=== PATIENT | male | born 1960 | race Caucasian/White ===

== ENCOUNTER 2018-03-17 11:51 | Observation (INO) | payer MEDICARE, BC ==
[~2018-03-17] VITALS: Ht 175.3 cm; Wt 113.2 kg
[2018-03-17] VITALS (10 sets, daily range): BP systolic 102–131; BP diastolic 61–88
[2018-03-17] MEDS ORDERED: LEVAQUIN 100 ML IV ONE (13:00)
[2018-03-17] MEDS ORDERED: NS 1000ML 1,000 ML IV ONE ×2 (13:00→17:30)
[2018-03-17 13:31] LABS: BASOPHIL % 0.1 % (0.0-0.2); EOSINOPHIL # 0.1 10^3/uL (0.0-0.2); EOSINOPHIL % 1.7 % (0.0-5.0); HEMOGLOBIN 14.7 g/dL (13.9-16.3); LYMPHOCYTES # 2.1 10^3/uL (1.0-4.8); LYMPHOCYTES % 28.4 % (24.0-44.0); MEAN CELL HGB 31.4 pg (26-34); MEAN CELL HGB CONCENTRATION 35.1 g/dL (33-37); MEAN CORP VOLUME 89.5 fL (78-100); MEAN PLATELET VOLUME 10.3 fL (7.8-11.0); MONOCYTES # 0.5 10^3/uL (0.3-0.8); MONOCYTES % 7.1 % (5.0-12.0); NEUTROPHIL # 4.7 10^3/uL (1.8-7.7); NEUTROPHILS % 62.4 % (41.0-85.0); RED CELL DISTRIBUTION WIDTH 11.9 % (11.5-14.5); WHITE BLOOD CELL 7.5 10^3/uL (4.5-11.0)
[2018-03-17] MEDS ORDERED: TRAM50TA PO (13:47)
[2018-03-17] MEDS ORDERED: ALBU8.5H7 IH (13:50)
[2018-03-17] MEDS ORDERED: PANT40TA3 PO (13:53)
[2018-03-17] MEDS ORDERED: ALPR0.5T PO (13:54)
[2018-03-17] MEDS ORDERED: VITA1TAB19 PO (13:59)
[2018-03-17] MEDS ORDERED: ASCO500C PO (13:59)
[2018-03-17] MEDS ORDERED: VITA400C36 PO (13:59)
[2018-03-17] MEDS ORDERED: ZINC30CA PO (13:59)
--- NOTE | 2018-03-17 14:02 | PCM.EKG ---
[facility] Test Date: 2018-03-17 Test Time: 14:02:53 Pat Name: ALEX ROTHMAN Department: Room: 303 A Gender: M Customer Services Coordinator: SARAH : 1960 Requested By: EDUIN SZYMANSKI Order Number: [id number] Reading MD: Measurements Intervals [place] Rate: 53 P: 69 ME: 144 QRS: 54 QRSD: 90 T: 55 QT: 446 QTc: 418 Interpretive Statements Sinus bradycardia ST abnormality, possible digitalis effect Abnormal ECG No previous ECG available for comparison Please click the below link to view image of tracing.
[2018-03-17 14:20] LABS: CALCIUM 8.7 mg/dL (8.4-10.5)
[2018-03-17] MEDS ORDERED: TORADOL IV ONE (14:45)
[2018-03-17] MEDS ORDERED: PHENERGAN 25 MG in HNS 50ML 50 ML IV ONE (15:15)
[2018-03-17] MEDS ORDERED: DEMEROL IV ONE (15:15)
--- NOTE | 2018-03-17 15:45 | NUR ---
ANESTHESIA AT BEDSIDE. PATIENT ALERT AND ORIENTED. DENIES PAIN SEVERE AT PRESENT. REPORTS RELIEVED WITH TORADOL.
[2018-03-17] MEDS ORDERED: DECADRON ONE (16:01)
[2018-03-17] MEDS ORDERED: TORADOL ONE (16:01)
[2018-03-17] MEDS ORDERED: ZOFRAN ONE (16:01)
[2018-03-17] MEDS ORDERED: VERSED ONE (16:01)
[2018-03-17] MEDS ORDERED: QUELICIN ONE (16:01)
[2018-03-17] MEDS ORDERED: ZEMURON IV ONE (16:01)
[2018-03-17] MEDS ORDERED: SUBLIMAZE ONE (16:02)
[2018-03-17] MEDS ORDERED: DIPRIVAN IV ONE (16:02)
--- NOTE | 2018-03-17 16:06 | NUR ---
PATIENT OFF UNIT FOR PROCEDURE.
[2018-03-17] MEDS ORDERED: LACTATED RINGERS 1,000 ML IV SCH (17:00)
[2018-03-17] MEDS ORDERED: XANAX PO PRN (17:00)
[2018-03-17] MEDS ORDERED: NS 1000ML 1,000 ML ONE (17:19)
[2018-03-17] MEDS ORDERED: DUONEB 0.5 MG-3 MG/3 ML SOLN IH ONE (17:22)
[2018-03-17] MEDS ORDERED: DUONEB 0.5 MG-3 MG/3 ML SOLN IH STA (17:24)
[2018-03-17] MEDS ORDERED: SUBLIMAZE IV PRN (17:30)
[2018-03-17] MEDS ORDERED: ZOFRAN IV PRN (17:30)
[2018-03-17] MEDS: LACTATED RINGERS 1,000 ML IV SCH (17:30)
--- NOTE | 2018-03-17 17:35 | NUR ---
PATIENT RETURNED TO ROOM FROM CYSTO. PATIENT HAD CYSTO WITH STINT PLACEMENT. PATIENT DROWSY BUT RESPONDS APPROPRIATELY. DENIES PAIN. REPORT RECEIVED FROM BLADE YOUNGER. SPECIAL VITAL SIGNS STARTED. PATIENT DID NOT RECEIVE ANY PAIN MEDICATION IN PACU. RECEIVED A BREATHING TREATMENT WHILE IN PACU. PATIENT REQUESTING TO GET UP TO THE BATHROOM. INSTRUCTED IT IS NOT RECOMMENDED TO GET UP THIS SOON AFTER ANESTHESIA. OFFERED URINAL BUT DENIED. INSTRUCTED HE IS STILL DROWSY AND PRONE TO FALL. SR UP X2. INSTRUCTED NOT TO GET OUT OF BED WITHOUT CALLING NURSE.
--- NOTE | 2018-03-17 18:05 | NUR ---
PATIENT UP TO BATHROOM TO VOID. PATIENT WITH HESITANCY AND PAIN WITH URINATION. VOIDED APPROXIMATELY 40CC LIGHT RED COLORED URINE. PATIENT REPEATEDLY STATED HE FELT LIKE HE STILL NEEDED TO URINATE BUT AFTER 10 MINS NURSE INSISTED PATIENT RETURN TO BED. PATIENT REPORTS FEELING LIGHT HEADED. PATIENT SAT UP ON SIDE OF BED.
--- NOTE | 2018-03-17 18:17 | NUR ---
PATIENT STANDING ON SIDE OF BED ATTEMPTING TO URINATE AGAIN. INSTRUCTED PATIENT THAT FEELING OF NEEDING TO URINATE IS EXPECTED AFTER PROCEDURE. PATIENT MAY NOT HAVE URINE OUT BUT MAY FEEL LIKE HE NEEDS TO URINATE. PATIENT INSIST ON TRYING. INSTRUCTED PATIENT GOING TO THE BATHROOM IS TOO MUCH RISK AT PRESENT. PATIENT AGREED TO USE URINAL AT BEDSIDE. PATIENT UNABLE TO VOID. ASSISTED BACK TO BED. SPECIAL VITAL SIGNS RESUMED.
--- NOTE | 2018-03-17 18:22 | DIREP ---
PROCEDURE:XRAY UROGRAPHY RETROGRADE COMPARISON:None. INDICATIONS:KIDNEY STONE, 7 images, 10ml omnipaque 240, 28.81 mGy, 60.3 fluoro time TECHNIQUE:7 fluoroscopic images during right ureteral stone extraction and stent placement. FINDINGS:Images depict a stone in the right paraspinal soft tissues. After contrast in the ureter and renal pelvis there are filling defects in the right renal pelvis and proximal right ureter. Placement of the right ureteral stent with the coils projecting over the renal pelvis and urinary bladder. CONCLUSION:Fluoroscopic assistance during right ureteral stone extraction and stent placement. Dictated by: Timi Davenport M.D. on 03/17/2018 at 06:20 PM
[2018-03-17] MEDS ORDERED: VENTOLIN IH PRN (20:00)
--- NOTE | 2018-03-17 21:40 | OPH ---
DATE OF SURGERY: 03/17/2018 PREOPERATIVE DIAGNOSIS: Calculus in the right proximal ureter. FINAL DIAGNOSIS: Calculus in the right proximal ureter. PROCEDURES: Cystoscopy, right retrograde, stone manipulation, insertion of double-J ureteral stent. DESCRIPTION OF PROCEDURE: The patient was brought to the cystoscopy room and put in supine position on the cystoscopy table. After the patient was given a satisfactory and adequate general anesthesia, the patient was placed in the lithotomy position. The genitalia was then prepped and draped aseptically in the usual manner. First, a 23-Greenlandic cystoscope was inserted per urethra up to the bladder. With the use of a right angle lens, the bladder was visualized. Both the orifices were identified. Initially, a right retrograde was done by inserting a 7-Greenlandic ureteral catheter in the right orifice and injected with Isovue dye and it shows the calculus in the right proximal ureter with hydronephrosis. A double-J ureteral stent was then inserted from the right orifice all the way to the kidney and the stone moved up to the right kidney during the stone manipulation. A double ureteral stent was put in place. After this, the guidewire was removed and the fluid in the bladder was emptied and instrument was removed. The patient was then awakened, was transferred to the recovery room in stable condition. Yovani Guerra MD DR: CORAL/eri JOB# [id number]
[2018-03-18 00:10] VITALS: BP 122/67
[2018-03-18] MEDS: NORCO 7.5MG PO PRN ×2 (01:23→13:36)
[2018-03-18] MEDS: LACTATED RINGERS 1,000 ML IV SCH (01:23)
[2018-03-18 03:52] VITALS: BP 124/71
--- NOTE | 2018-03-18 06:35 | NUR ---
BEDSIDE REPORT RECEIVED FROM [facility]. PATIENT LYING IN BED WITH HOB ELEVATED. O2 ON PER NASAL CANNULA AT 1 L. RESPIRATIONS UNLABORED PATIENT AWAKE BUT DROWSY. DENIES PAIN OR DISCOMFORT AT PRESENT. REPORTS VOIDING PINK URINE DURING THE NIGHT. REPORTS PAIN CONTROLLED WITH ONE NORCO. PATIENT STATES "I FINALLY SLEPT ABOUT 4 HOURS." IV PRESENT IN LEFT FOREARM WITH 20 GA AND LR INFUSING AT 100CC/HR. NO DISTRESS NOTED AT PRESENT. SR UPX2. CALL LIGHT WITHIN REACH.
--- NOTE | 2018-03-18 07:04 | NUR ---
Report Report given to Chaka Larios RN
--- NOTE | 2018-03-18 08:30 | NUR ---
PATIENT SITTING UP IN BED. RESPIRATIONS UNLABORED ON ROOM AIR. REPORTS PAIN PRESENT BUT NOT SEVERE. STATES "THE PAIN IS IN MY RIGHT SIDE. ITS A LITTLE BIT IN MY KIDNEY. MY STOMACH HURTS BECAUSE I THINK I AM CONSTIPATED SOME." PATIENT ENCOURAGED TO GET UP AND WALK. PATIENT DRANK 75% OF CLEAR LIQUID DIET. TOLERATED WITHOUT PROBLEMS. SR UP X2. CALL LIGHT WITHIN REACH.
--- NOTE | 2018-03-18 08:45 | NUR ---
DR SZYMANSKI AT BEDSIDE. INSTRUCTED PATIENT HE IS DISCHARGED UNTIL SATURDAY. HE IS TO COME BACK SATURDAY TO HAVE STONE CRUSHED BY LITHOTRIPSY. HE STATED HE WILL PRESCRIBE ANTIBIOTIC AND PAIN MED. INFORMED DR SZYMANSKI PATIENT HAS TRAMADOL HE JUST FILLED FOR PAIN AND HAS NOT TAKEN ANY. HE STATED HE WILL JUST PRESCRIBE CIPRO AND HE NEEDS TO TAKE IT ALL. DR SZYMANSKI INFORMED PATIENT THAT HE WILL EXPERIENCE ABDOMINAL DISCOMFORT UNTIL SATURDAY BECAUSE HE PLACED A STINT FROM THE BLADDER TO THE KIDNEY SO THAT HE CAN URINATE. HE STATED THAT THE STONE WAS BLOCKING THE URETER. HE STATED HE WOULD PROBABLY EXPERIENCE BURNING, PAIN AND POSSIBLY SOME BLEEDING. PATIENT REQUESTED TO STAY UNTIL AFTER LUNCH BECAUSE "IM MORE COMFORTABLE HERE WITH SOMEONE HERE TO HELP ME." DR SZYMANSKI AGREED. PATIENT C/O BEING CONSTIPATED. DR SZYMANSKI STATED HE COULD HAVE A LAXATIVE OF CHOICE AND A REGULAR DIET. DR SZYMANSKI SAID TO CALL HIS OFFICE TO FIND OUT WHEN HE IS TO BE HERE ON SATURDAY FOR THE PROCEDURE AND INFORMED THE PATIENT IT IS AN OUT PATIENT PROCEDURE. PATIENT VERBALIZED UNDERSTANDING.
[2018-03-18] MEDS: PROTONIX PO SCH ×2 (09:00→09:04)
[2018-03-18] MEDS ORDERED: LACTATED RINGERS 1,000 ML IV SCH (09:00)
[2018-03-18] MEDS ORDERED: COLACE PO ONE (09:10)
[2018-03-18 09:22] VITALS: BP 128/68
--- NOTE | 2018-03-18 09:55 | NUR ---
DISCHARGE PLAN CM VISITED WITH PATIENT REGARDING DISCHARGE PLAN AND NEEDS. PATIENT LIVES AT HOME ALONE IN [place], [place]. HE IS RETIRED AND INDEPENDENT WITH ADL'S. HE STATES HE DOES NOT USE ANY DME AT THIS TIME AND HE DOES NOT REQUIRE OXYGEN AT HOME. HE DOES HAVE A CPAP THAT HE IS SUPPOSED TO WEAR EVERY NIGHT BUT HE STATES HE RARELY USES IT. PT NOT SURE WHICH DME COMPANY HE GETS HIS CPAP SUPPLIES FROM. PATIENT IS CONCERNED WITH GOING HOME TODAY STATING HE FEELS LIKE HE NEEDS TO STAY BECAUSE HE STILL HAS A KIDNEY STONE AND HE DOESN'T KNOW HOW HE WILL COME BACK AND FORTH FOR MULTIPLE APPOINTMENTS DUE TO NOT HAVING A VEHICLE AND NOT HAVING ANY FAMILY OR FRIENDS TO HELP HIM. CM SUGGESTED CALLING [employer], PATIENT STATES HE DOESN'T LIKE [employer] [facility] BECAUSE THEY STOP TOO OFTEN TO STATOR TESTER OTHER PATIENTS AND IT GIVES HIM ANXIETY. THEN PATIENT STATES HIS BROTHER IS BRINGING HIM TO HIS NEXT SCHEDULED APPOINTMENT. DISCHARGE GOAL IS TO DISCHARGE HOME WITH CONTINUED ROUTINE SELF CARE. CM DEPT WILL CONTINUE TO MONITOR DISCHARGE NEEDS.
[2018-03-18] MEDS ORDERED: CIPR500T86 PO (11:02)
--- NOTE | 2018-03-18 11:28 | NUR ---
RESTING IN BED. DENIES PAIN AT PRESENT. REQUESTS PAIN MED BEFORE DISCHARGE DUE TO RIDE HOME. STATES "THE ROAD IS REALLY BUMPY SO I KNOW IT IS GOING TO HURT." NO DISTRESS NOTED AT PRESENT. SR UP X2. CALL LIGHT WITHIN REACH.
[2018-03-18 12:08] VITALS: BP 123/70
[2018-03-18 13:40] VITALS: BP 123/70
--- NOTE | 2018-03-18 13:40 | NUR ---
DISCHARGE INSTRUCTIONS EXPLAINED TO PATIENT. INSTRUCTED RE: S/S TO REPORT TO MD. INSTRUCTED TO REPORT INCREASED UNCONTROLLED PAIN, INCREASED BLEEDING, CHILLS, FEVER, INABILITY TO URINATE, ABDOMINAL DISTENTION. INSTRUCTED RE: CALL DR SZYMANSKI'S OFFICE ON SATURDAY TO FIND OUT WHAT TIME TO BE HERE TO ARRIVE FOR THE LITHOTRIPSY ON SATURDAY. INSTRUCTED RE: CIPRO TWICE DAILY X10 DAYS. INSTRUCTED RE: TRAMADOL 1-2 TABLETS FOR PAIN Q 6 HOURS NEEDED. INSTRUCTED TO INCREASE FLUID INTAKE TO ASSIST WITH FLUSHING OUT KIDNEYS. PATIENT VERBALIZES UNDERSTANDING. PATIENT DISCHARGED VIA W/C WITH NEPHEW TO PRIVATE CAR.
[2018-03-21] MEDS ORDERED: TAMS0.4C2 PO (09:28)
== END 2018-03-18 13:40 | disposition home or self-care (01) ==
LOC: MS 11:51 → EDSTATUS 16:00
PROVIDERS: ADMIT Urology; ATTEND Urology
DX: N13.2 Hydronephrosis with renal and ureteral calculous obstruction (principal); F41.9 Anxiety disorder, unspecified; E66.9 Obesity, unspecified; K21.9 Gastro-esophageal reflux disease without esophagitis; J45.909 Unspecified asthma, uncomplicated; E11.9 Type 2 diabetes mellitus without complications
CPT/HCPCS: 36415; 52332; 74420; 76000; 80048; 82948 ×5; 85025; 85610; 85730; 93005; 94640; 94660; 96365; 96375; G0378 ×26; J0330; J1100; J1885 ×2; J1956; J2250; J2405; J3010; J3490 ×2; J7030 ×2; J7120 ×2; J7620; Q9966; C1758; C1769; C2617

== ENCOUNTER → 2018-03-21 | Day surgery (SDC) | payer MEDICARE, BC ==
[~2018-03-21] VITALS: Ht 175.3 cm; Wt 109.1 kg
[2018-03-21] VITALS (9 sets, daily range): BP systolic 116–154; BP diastolic 81–93
[~2018-03-21] MED LIST: ALBU8.5H7 IH; ALPR0.5T PO; ASCO500C PO; ATOR10TA PO; CIPR500T86 PO; DECADRON ONE; DILAUDID IV PRN; DIPRIVAN IV ONE; LACTATED RINGERS 1,000 ML IV SCH; LASIX IV ONE; LASIX IV SCH; LEVAQUIN 100 ML IV ONE; LIDOCAINE 2% VIAL ONE; NORCO 7.5MG PO PRN; PANT40TA3 PO; SUBLIMAZE IV PRN; SUBLIMAZE ONE; TAMS0.4C2 PO; TORADOL ONE; TRAM50TA PO; VERSED ONE; VITA1TAB19 PO; VITA400C36 PO; ZINC30CA PO; ZOFRAN IV PRN; ZOFRAN ONE
--- NOTE | 2018-03-21 09:53 | DIREP ---
PROCEDURE:XRAY ABDOMEN SINGLE VW COMPARISON:[facility], CT, CT RENAL STONE PROTOCOL, 03/16/2018, 03:20 PM. [facility], CR, XRAY UROGRAPHY RETROGRADE, 03/17/2018, 02:43 PM. INDICATIONS:URETERAL STENT; ESWL (extracorporeal shock wave lithotripsy) of renal stone. FINDINGS: BOWEL GAS PATTERN:Normal. CALCIFICATIONS:There is a 9 mm calculus overlying the lower portion of the right kidney, probably right in the right renal pelvis. There is also a 4 mm calculus overlying the expected region of the left kidney. LUNG BASES:Not included on the image. BONES:Normal. OTHER:A right double-J ureteral stent is seen in place . CONCLUSION: 1. A right ureteral stent is seen in place. 2. Bilateral renal calculi are noted. Dictated by: Benton Lo M.D. on 03/21/2018 at 09:47 AM
--- NOTE | 2018-03-21 12:58 | OPH ---
DATE OF SURGERY: 03/21/2018 PREOPERATIVE DIAGNOSIS: Right renal calculus with an indwelling stent. FINAL DIAGNOSIS: Right renal calculus with an indwelling stent. PROCEDURE: Right ESWL. DESCRIPTION OF PROCEDURE: The patient was brought to the lithotripsy room, was put in supine position on the lithotripsy table. The right Preop KUB and renal ultrasound was initially performed which revealed a large stone in the lower pole of the right kidney measuring 8.5 mm in diameter. There is no evidence of hydronephrosis, no cysts or masses noted. After the patient was given an LMA general anesthesia and after localization of the stone with the use of an ultrasound and fluoroscopy, a right ESWL was then performed using a Dornier Compact Delta II Lithotripter. A total of 2000 shockwaves were delivered to the stone in the right kidney under ultrasound guidance. After fragmentation of the stone as noted in the ultrasound, procedure was terminated. The patient was awakened, was transferred to the recovery room in stable condition. Yovani Guerra MD DR: CORAL/eri JOB# [id number]
== END | disposition home or self-care (01) | DRG 694 ==
LOC: SDC 04:26
PROVIDERS: ATTEND Urology
DX: N20.0 Calculus of kidney (principal); F41.9 Anxiety disorder, unspecified; K21.9 Gastro-esophageal reflux disease without esophagitis; E66.9 Obesity, unspecified; E11.9 Type 2 diabetes mellitus without complications; J45.909 Unspecified asthma, uncomplicated; Z68.35 Body mass index [BMI] 35.0-35.9, adult; G47.30 Sleep apnea, unspecified; E78.00 Pure hypercholesterolemia, unspecified; Z98.890 Other specified postprocedural states; Z79.899 Other long term (current) drug therapy
CPT/HCPCS: 50590; 74018; 82948 ×2; J1100; J1885; J1956; J2001; J2250; J2405; J3010; J3490

== ENCOUNTER 2018-03-24 00:17 | Day surgery (SDC) | payer MEDICARE, BC ==
[2018-03-24] VITALS (8 sets, daily range): BP systolic 123–136; BP diastolic 65–78
[~2018-03-24] VITALS: Ht 175.3 cm; Wt 109.1 kg
[~2018-03-24 00:17] MED LIST changes: -ATOR10TA PO; -DECADRON ONE; -DILAUDID IV PRN; -DIPRIVAN IV ONE; -LACTATED RINGERS 1,000 ML IV SCH; -LASIX IV ONE; -LASIX IV SCH; -LEVAQUIN 100 ML IV ONE; -LIDOCAINE 2% VIAL ONE; -NORCO 7.5MG PO PRN; +QUELICIN ONE; -SUBLIMAZE IV PRN; -SUBLIMAZE ONE; -TORADOL ONE; -VERSED ONE; -ZOFRAN IV PRN; -ZOFRAN ONE
[2018-03-24] MEDS ORDERED: LACTATED RINGERS 1,000 ML ONE (05:15)
[2018-03-24] MEDS ORDERED: LEVAQUIN 100 ML IV ONE (05:16)
[2018-03-24] MEDS ORDERED: SUBLIMAZE ONE (07:09)
[2018-03-24] MEDS ORDERED: VERSED ONE (07:09)
[2018-03-24] MEDS ORDERED: TORADOL ONE (07:09)
[2018-03-24] MEDS ORDERED: ZOFRAN ONE (07:09)
[2018-03-24] MEDS ORDERED: LIDOCAINE 2% VIAL ONE (07:10)
[2018-03-24] MEDS ORDERED: DIPRIVAN IV ONE (07:10)
[2018-03-24] MEDS ORDERED: LACTATED RINGERS 1,000 ML IV SCH ×2 (07:30→09:30)
[2018-03-24] MEDS ORDERED: SODIUM CHLORIDE IR ONE (08:44)
[2018-03-24] MEDS ORDERED: NS 3000ML IRR IR ONE (08:44)
[2018-03-24] MEDS ORDERED: NORCO 7.5MG PO PRN (09:30)
[2018-03-24] MEDS ORDERED: SUBLIMAZE IV PRN (10:00)
[2018-03-24] MEDS ORDERED: NS 1000ML 1,000 ML SCH (10:00)
--- NOTE | 2018-03-24 11:51 | DIREP ---
PROCEDURE:XRAY FLUOROSCOPY COMPARISON:[facility], CR, XRAY ABDOMEN SINGLE VW, 03/21/2018, 06:57 AM. [facility], CR, XRAY UROGRAPHY RETROGRADE, 03/17/2018, 02:43 PM. [facility], CT, CT RENAL STONE PROTOCOL, 03/16/2018, 03:20 PM. INDICATIONS:cysto with stent removal, 64.72 mGy, 10 films, 147.6 seconds fluoro TECHNIQUE:1847.6 seconds of fluoroscopic time was used. Ten images were saved. FINDINGS:Initial images demonstrate a right ureteral stent. There is a calculus noted in the upper right ureter lumen adjacent to this stent. A calculus is also identified over the region of the left kidney. Subsequently, the stent was removed and the right ureter catheterized manipulated. Final image demonstrates no definite evidence of right renal calculus. CONCLUSION: 1. A right ureteral stent was removed. 2. The right ureter was manipulated. A calculus initially identified in the upper right ureter is not seen on the final film. A left renal calculus is re-demonstrated. 3. Please also see the surgeon's operative note. Dictated by: Benton Lo M.D. on 03/24/2018 at 11:56 AM
--- NOTE | 2018-03-24 13:28 | OPH ---
DATE OF SURGERY: 03/24/2018 PREOPERATIVE DIAGNOSIS: Calculus of the right kidney, post-ESWL with stent. FINAL DIAGNOSIS: Residual calculi in the right upper ureter with stent. PROCEDURES: Cystoscopy, removal of right ureteral stent, right ureteroscopy with ureteral basket stone extraction. DESCRIPTION OF PROCEDURE: The patient was brought to the cystoscopy room and was put in supine position on the cystoscopy table. After the patient was given a satisfactory and adequate LMA general anesthesia, the patient was placed in the lithotomy position. The genitalia was then prepped and draped aseptically in the usual manner. First, a 23-Kyrgyz cystoscope was inserted per urethra up to the bladder with the use of the right angle and the bladder was visualized. There was some congestion noted. This is a presence of stent in the right ureteral orifice. The left ureteral orifice was normal. The right ureteral stent was then removed and replaced with a Glidewire. After removal of the stent, the cystoscope was removed and ____ semirigid ureteroscope was inserted to the bladder from the right orifice all the way to the upper ureter and it revealed some stones in the right upper ureter and basket stone extraction was performed. After this was done, the instrument was removed. The Glidewire was removed and a cystoscope was reinserted to the bladder and the bladder was emptied with fluid. Procedure was terminated. The patient was awakened, was transferred to the recovery room in stable condition. Yovani Guerra MD DR: CORAL/eri JOB# [id number]
== END 2018-03-24 11:20 | disposition home or self-care (01) ==
LOC: SURG 00:17
PROVIDERS: ATTEND Urology
DX: Z45.89 Encounter for adjustment and management of other implanted devices (principal); F41.9 Anxiety disorder, unspecified; E11.9 Type 2 diabetes mellitus without complications; E66.9 Obesity, unspecified; K21.9 Gastro-esophageal reflux disease without esophagitis; G47.30 Sleep apnea, unspecified; J45.909 Unspecified asthma, uncomplicated; E78.00 Pure hypercholesterolemia, unspecified; Z68.35 Body mass index [BMI] 35.0-35.9, adult; Z79.899 Other long term (current) drug therapy; Z98.890 Other specified postprocedural states; Z88.6 Allergy status to analgesic agent; Z79.2 Long term (current) use of antibiotics; Z82.5 Family history of asthma and other chronic lower respiratory diseases; Z84.89 Family history of other specified conditions
CPT/HCPCS: 52352; 76000; 82948 ×2; J0330; J1885; J1956; J2001; J2250; J2405; J3010; J3490; J7030 ×2; J7120; C1758; C1894

== ENCOUNTER 2018-03-26 09:43 | Observation (INO) | payer MEDICARE, BC ==
[~2018-03-26] VITALS: Ht 175.3 cm; Wt 111.1 kg
[~2018-03-26 09:43] MED LIST changes: -QUELICIN ONE
--- NOTE | 2018-03-26 09:50 | NUR ---
ARRIVAL PATIENT ER 6, AMBULATORY. PATIENT POST OP, SWAL FOR DR. SZYMANSKI. PATIENT REFERED TO ED FOR LABS UNTIL NESSA FINISHES CASE. PATIENT STATES HIS PAIN IS AT A 4/10, AND THAT HE CAN'T TAKE THE TRAMADOL, IT MAKES HIM THROW UP, HE IS REQUESTING ANOTHER PAIN MEDICATION FROM NESSA. PATIENT ASSESSMENT COMPLETED, CONNECTED TO ALL MONITORS, MD AT BEDSIDE FOR EVAL.
[2018-03-26 10:02] VITALS: BP 147/82
--- NOTE | 2018-03-26 10:15 | NUR ---
CT PATIENT TO CT
--- NOTE | 2018-03-26 10:19 | ER.PDOC ---
General Chief Complaint: General Complaint Stated Complaint: MALE , R FLANK PAIN Time seen by MD: 10:00 Source: patient Exam Limitations: no limitations History of Present Illness Problems: (1) Calculus of kidney Status: Chronic ICD Code: N20.0 - Calculus of kidney SNOMED: [id number] Timing/Duration: constant Severity/Quality: dullness Radiation: flank, groin Associated Symptoms: back pain, nausea/vomiting Relieved By: nothing Allergies: Coded Allergies: tramadol (Verified Allergy, Intermediate, 03/26/18) Home Meds Active Scripts Tamsulosin Hcl (TAMSULOSIN HCL) 0.4 Mg Cap.er.24h, 0.4 MG PO DAILY24, #21 Prov:EDUIN SZYMANSKI MD 03/21/18 Ciprofloxacin Hcl (CIPRO) 500 Mg Tablet, 500 MG PO BID, #20 Prov:EDUIN SZYMANSKI MD 03/18/18 Reported Medications Acetaminophen With Codeine (TYLENOL WITH CODEINE #3 TABLET) 1 Each Tablet, 1 TAB PO Q4 PRN for PAIN, #20 TAB 03/27/18 Atorvastatin 10MG (LIPITOR 10MG) 10 Mg Tablet, 10 MG PO DAILY24, TAB 03/26/18 Ascorbic Acid (VITAMIN C) 500 Mg Capsule.er, 500 MG PO DAILY24 03/17/18 Vitamin B Complex (B COMPLEX) 1 Each Tablet, 1 EACH PO DAILY24, TABLET 03/17/18 Zinc Gluconate-Zinc Picolinate (ZINC) 30 Mg Capsule, 30 MG PO DAILY24, CAPSULE 03/17/18 Vitamin E Mixed (VITAMIN E) 400 Unit Capsule, 400 UNIT PO DAILY24, CAPSULE 03/17/18 Alprazolam (XANAX) 0.5 Mg Tablet, 0.5 MG PO QID PRN for ANXIETY, TABLET 03/17/18 Pantoprazole Sodium (PROTONIX) 40 Mg Tablet.dr, 1 TAB PO DAILY, #30 TAB 5 Refills 03/17/18 Albuterol Sulfate (PROAIR HFA) 8.5 Gm Hfa.aer.ad, 8.5 GM IH Q4HR PRN for SHORTNESS OF BREATH 03/17/18 Discontinued Reported Medications Tramadol Hcl (TRAMADOL HCL) 50 Mg Tablet, 2 TAB PO Q6HR for PAIN, #90 TAB 03/17/18 Tramadol Hcl (TRAMADOL HCL) 50 Mg Tablet, 1 TAB PO Q6HR PRN for PAIN 5 - 7, #90 TAB 03/17/18 Vital Signs First Vital Signs Date Time Temp Pulse Resp B/P (MAP) Pulse Ox O2 Delivery O2 Flow Rate FiO2 03/24/18 11:09 51 03/26/18 09:45 97.7 18 98 Room Air 97.7 03/26/18 10:02 147/82 (103) Last Vital Signs Date Time Temp Pulse Resp B/P (MAP) Pulse Ox O2 Delivery O2 Flow Rate FiO2 03/26/18 10:02 97.7 61 18 147/82 (103) 98 Room Air 97.7 Past Medical History Medical History: asthma, diabetes, high cholesterol Surgical History: tonsillectomy, other Family History Significant Family History: no pertinent family hx Social History Smoking: non-smoker Alcohol Use: none Drug Use: none Reviewed Nursing Reviewed: Vital Signs, Abn. Noted All Other Systems: Reviewed and Negative Physical Exam General Appearance: No Apparent Distress, WD/WN HEENT: PERRL/EOMI, Normal ENT Inspection, TMs Normal, Pharynx Normal Neck: Non-Tender, Full Range of Motion, Supple, Normal Inspection Respiratory: chest non-tender, lungs clear, normal breath sounds, no respiratory distress, no accessory muscle use Cardiovascular: Normal Peripheral Pulses, Regular Rate, Rhythm, No Edema, No Gallop, No JVD, No Murmur Gastrointestinal: Tenderness Back: Normal Inspection, No CVA Tenderness, No Vertebral Tenderness Extremities: Normal Range of Motion, Non-Tender, Normal Inspection, No Pedal Edema, No Calf Tenderness, Normal Capillary Refill, Pelvis Stable Neurologic/Psychiatric: printmaker II-XII NML as Tested, No Motor/Sensory Deficits, Alert, Normal Mood/Affect, Oriented x 3 Lymphatic: No Adenopathy Consult/PCP Time Consult/PCP Called: 11:11 Consult/PCP: dr szymanski Course Sepsis Screening Results: Posi: NEGATIVE Sepsis Qualifier/Stage: NO DEFINITE RISK Vitals & review Data Vital Sign - Last 24 Hours 03/26/18 03/26/18 03/26/18 09:45 09:45 10:02 Temp 97.7 97.7 97.7 97.7 97.7 97.7 Pulse 62 61 61 Resp 18 18 18 B/P (MAP) 147/82 (103) Pulse Ox 98 98 O2 Delivery Room Air Room Air Departure Time of Disposition: 11:11 Disposition: 09 ADMITTED INPATIENT Impression: Primary Impression: Calculus of kidney Condition: Improved Referrals: ANJU CORONA MD (PCP) PRIMARY CARE PROVIDER Duration or Time Spent with Pa: 2 hrs MIRELA RAMOS MD Mar 26, 2018 10:19
[2018-03-26 10:20] LABS: HEMOGLOBIN 13.3 g/dL (13.9-16.3); MEAN CELL HGB 31.4 pg (26-34); MEAN CELL HGB CONCENTRATION 35.4 g/dL (33-37); MEAN CORP VOLUME 88.9 fL (78-100); MEAN PLATELET VOLUME 10.2 fL (7.8-11.0); RED CELL DISTRIBUTION WIDTH 11.6 % (11.5-14.5); WHITE BLOOD CELL 10.8 10^3/uL (4.5-11.0)
--- NOTE | 2018-03-26 10:25 | NUR ---
CT PATIENT RETURNED FROM CT
[2018-03-26] MEDS ORDERED: TORADOL ONE (10:28)
[2018-03-26] MEDS ORDERED: TORADOL IM ONE (10:30)
--- NOTE | 2018-03-26 10:35 | DIREP ---
PROCEDURE:CT ABDOMEN/PELVIS W/O CONTRAST COMPARISON:[facility], CT, CT ABD/PELVIS W/O, 08/23/2015, 10:50 PM. INDICATIONS:R Flank pain TECHNIQUE:Axial images were created through the abdomen and pelvis without intravenous contrast material. No oral contrast was administered. Sagittal and coronal reconstructions were performed from source images. FINDINGS: LUNG BASES:Normal. No visible pulmonary or pleural disease. LIVER:Normal. No significant liver lesions are identified. BILIARY:Normal. No visible dilatation or calcification. PANCREAS:Normal. No lesion, fluid collection, ductal dilatation, or atrophy. SPLEEN:Normal. No enlargement or focal lesion. ADRENALS:Normal. No mass or enlargement. URINARY TRACT:5 mm mid right ureteral stone resulting in mild hydroureter and hydronephrosis. Associated mild strandy changes are in the periureteral fat extending into the right lower quadrant of the abdomen. Additional similar and smaller stones are seen scattered throughout the right kidney, with a larger 6 mm stone in the lower pole of the left kidney. AORTA/VASCULAR:Normal. No aneurysm. RETROPERITONEUM:Normal. No mass or adenopathy. BOWEL/MESENTERY:Scattered sigmoid diverticulum. ABDOMINAL WALL:Normal. No mass or hernia. PELVIC ORGANS:Normal. No visible mass. Pelvic organs appropriate for patient age. BONES:Grade 1 anterolisthesis of L5 on S1 with bilateral spondylolysis. OTHER:Negative. CONCLUSION: 1. Mid right ureteral stone resulting in mild hydronephrosis and hydroureter. 2. Additional nonobstructing bilateral renal calculi. Dictated by: Prosper Duffy M.D. on 03/26/2018 at 10:29 AM
[2018-03-26 10:36] LABS: CALCIUM 8.6 mg/dL (8.4-10.5); CARBON DIOXIDE 24.4 mmol/L (20.0-32)
[2018-03-26 11:00] VITALS: BP 117/87
--- NOTE | 2018-03-26 11:15 | NUR ---
DR. SZYMANSKI IN ROOM WITH PATIENT
[2018-03-26 12:00] VITALS: BP 120/64
[2018-03-26] MEDS ORDERED: LEVAQUIN 150 ML IV ONE (12:00)
[2018-03-26] MEDS ORDERED: NORCO 7.5MG PO PRN (12:00)
[2018-03-26] MEDS ORDERED: TORADOL IV PRN (12:00)
[2018-03-26 12:06] LABS: BILIRUBIN,URINE NEGATIVE (NEGATIVE); UROBILINOGEN,URINE NORMAL (NEGATIVE)
--- NOTE | 2018-03-26 12:06 | NUR ---
UPDATE PATIENT IN ROOM RESTING, NO S/S OF DISTRESS.
[2018-03-26 12:13] LABS: APPEARANCE,URINE CLEAR (CLEAR); UA COLOR YELLOW (YELLOW)
[2018-03-26] MEDS ORDERED: ATOR10TA PO (12:31)
--- NOTE | 2018-03-26 12:40 | NUR ---
Patient transported in the unit by wheelchair on room air from ER, IV G 20 on L hand with Levofloxacin infusing at 100 ml/hr, urine sample given in the ER. Patient is alert, awake and independent with activities of daily living. No complain of pain at this time since patient was given pain medication in the ER. Bed in low, lock position. Side rails up x2. Call light within reach. Patient requested for a sandwich tray.
[2018-03-26] MEDS: NS 1000ML 1,000 ML SCH (13:11)
--- NOTE | 2018-03-26 14:00 | NUR ---
[place] tray served, patient consumed 100% of his sandwich.
--- NOTE | 2018-03-26 14:30 | NUR ---
Instructed patient to save the urine so this nurse can strain it for renal stones.
[2018-03-26 18:00] VITALS: BP 121/61
--- NOTE | 2018-03-26 19:00 | NUR ---
Bedside report given to BLADE Ross and relinquished care.
[2018-03-26 19:45] VITALS: BP 122/70
[2018-03-27] VITALS (8 sets, daily range): BP systolic 115–137; BP diastolic 67–77
[2018-03-27] MEDS: NS 1000ML 1,000 ML SCH (00:05)
[2018-03-27] MEDS ORDERED: ZOFRAN ONE (06:45)
[2018-03-27] MEDS ORDERED: DECADRON ONE (06:45)
[2018-03-27] MEDS ORDERED: DIPRIVAN IV ONE (06:46)
[2018-03-27] MEDS ORDERED: DILAUDID ONE (06:46)
[2018-03-27] MEDS ORDERED: VERSED ONE (06:46)
[2018-03-27] MEDS ORDERED: SODIUM CHLORIDE IR ONE (06:52)
[2018-03-27] MEDS ORDERED: NS 3000ML IRR IR ONE (06:52)
--- NOTE | 2018-03-27 07:00 | NUR ---
REPORT REPORT RECEIVED FROM LISA MURGUIA.
--- NOTE | 2018-03-27 07:15 | NUR ---
STATUS PATIENT OFF FLOOR. TAKEN TO SURGERY
[2018-03-27] MEDS ORDERED: LEVAQUIN 100 ML IV ONE (07:46)
[2018-03-27] MEDS ORDERED: PHENERGAN IV PRN (09:00)
[2018-03-27] MEDS ORDERED: LACTATED RINGERS 1,000 ML IV SCH (09:00)
[2018-03-27] MEDS ORDERED: NORCO 7.5MG PO PRN (09:00)
[2018-03-27] MEDS ORDERED: DILAUDID IV PRN (09:00)
[2018-03-27] MEDS ORDERED: ZOFRAN IV PRN (09:00)
[2018-03-27] MEDS ORDERED: VENTOLIN IH PRN (09:00)
--- NOTE | 2018-03-27 09:20 | NUR ---
UPDATE PATIENT RETURNED TO FLOOR. REPORT RECEIVED FROM DIGNA MURGUIA. PATIENT AWAKE AND ALERT. NO COMPLAINTS OF PAIN. SIDES RAILS X2. BED IN LOW LOCKED POSITION. SPECIAL VITAL SIGNS IN PLACE. PATIENT DENIES ANY NEEDS AT THIS TIME.
--- NOTE | 2018-03-27 09:45 | NUR ---
DISCHARGE PLAN CASE MANAGEMENT VISITED WITH PATIENT CONCERNING DISCHARGE PLAN AND NEEDS. LIVES AT HOME ALONE. INDEPENDENT OF ADLS. RETIRED FROM [employer]. DENIES NEED FOR DME AND FOR HOME OXYGEN. CASE MANAGEMENT EDUCATED PATIENT ON HOME HEALTH, SNF, LTACH, AND OUTPATIENT PHYSICAL THERAPY. PATIENT DENIES NEED FOR HOME HEALTH AT THIS TIME. DISCHARGE PLAN IS TO DISCHARGE TO HOME AND CONTINUE SELF CARE. DENIES FURTHER NEEDS AT THIS TIME. CASE MANAGEMENT WILL CONTINUE TO FOLLOW DISCHARGE NEEDS.
[2018-03-27] MEDS ORDERED: NS 1000ML 1,000 ML ONE (10:25)
[2018-03-27] MEDS ORDERED: ACET-685 PO (10:33)
--- NOTE | 2018-03-27 11:00 | DIREP ---
PROCEDURE:XRAY UROGRAPHY RETROGRADE COMPARISON:None. INDICATIONS:RT RENAL STONE, 40ML OMNI 240 USED, 106.9mGy, 205.1 S FLUORO, 15 IMAGES TECHNIQUE:15 fluoroscopic images are submitted from the OR. FINDINGS:Small filling defect is present in the proximal right ureter consistent with a stone. A right ureteral stent catheter was then passed. Proximal tip is in the right renal pelvis with distal tip in the bladder. CONCLUSION:Satisfactory placement of right ureteral stent catheter. Dictated by: Micheal Ramirez M.D. on 03/27/2018 at 10:48 AM
--- NOTE | 2018-03-27 12:32 | OPH ---
DATE OF SURGERY: 03/27/2018 PREOPERATIVE DIAGNOSIS: Calculus, right upper mid ureter with hydronephrosis. FINAL DIAGNOSIS: Calculus, right upper mid ureter with hydronephrosis. PROCEDURES: Cystoscopy, right retrograde, right ureteroscopy with stone extraction and insertion of double-J ureteral stent. DESCRIPTION OF PROCEDURE: The patient was brought to the cystoscopy room, was put in supine position on the cystoscopy table. After the patient was given a satisfactory and adequate general anesthesia, the patient was placed in the lithotomy position. The genitalia was then prepped and draped aseptically in the usual manner. First, a 23-Swiss cystoscope was inserted per urethra up to the bladder and with the use of the right angle lens, the bladder was visualized. There was some congestion noted. The right orifice was congested and edematous. The left side is normal. An initial right retrograde was performed by inserting a 7-Swiss ureteral catheter in the right ureteral orifice and injected with Isovue dye and revealed some obstruction in the right upper ureter. A Glidewire was then inserted from the right orifice all the way to the kidney and the cystoscope was removed and a 7-Swiss semirigid ureteroscope was inserted per urethra up to the bladder and then was inserted to the right ureter and showed some stone in the upper mid ureter and some of the stones were extracted. After this was done, the ureteroscope was removed and a 6-Swiss double J right ureteral stent was inserted from the right orifice all the way to the kidney, then the Glidewire was removed. The cystoscope was reinserted and the bladder was emptied with fluid. Procedure was terminated. The patient was awakened, was transferred to the recovery room in stable condition. Yovani Guerra MD DR: CORAL/eri JOB# [id number]
--- NOTE | 2018-03-27 13:40 | NUR ---
DISCHARGE PATIENT DISCHARGED TO HOME. PATIENT LEFT FLOOR IN WHEELCHAIR ACCOMPANIED BY NURSE AND SISTER IN LAW. IV REMOVED TIP INTACT. BELONGINGS WITH PATIENT. TAKEN TO PRIVATE AUTO.
--- NOTE | 2018-04-03 16:17 | DSH ---
DATE OF DISCHARGE: PREOPERATIVE DIAGNOSIS: Calculus in the right mid ureter, post-ESWL with hydronephrosis. FINAL DIAGNOSIS: Calculus in the right mid ureter, post-ESWL with hydronephrosis. PROCEDURES: Cystoscopy, right retrograde, right ureteroscopy with stone extraction and insertion of double-J ureteral stent. The patient was admitted initially because of the right flank pain and after doing the cystoscopy and right retrograde with stent insertion, he has been observed and the following day, he was admitted for further management with an IV antibiotic. On 03/28/2018, the patient was afebrile ____ discomfort with no flank pain. He was then discharged in a stable condition. The patient will be followed up in the office. Yovani Guerra MD DR: CORAL/eri JOB# [id number]
== END 2018-03-27 13:30 | disposition home or self-care (01) ==
LOC: ER 09:43 → MS 11:35 → EDPENDDISDT 03-27 13:20 → EDPENDDISTM 03-27 13:20
PROVIDERS: ADMIT Urology; ATTEND Urology
DX: N13.2 Hydronephrosis with renal and ureteral calculous obstruction (principal); J45.909 Unspecified asthma, uncomplicated; E11.9 Type 2 diabetes mellitus without complications; E78.00 Pure hypercholesterolemia, unspecified; Z88.8 Allergy status to other drugs, medicaments and biological substances; Z79.899 Other long term (current) drug therapy
CPT/HCPCS: 36415 ×2; 52332; 74176; 74420; 76000; 80053; 81000; 82948 ×2; 85027; 85610; 96365; 96372; 99285; G0378 ×26; J1100; J1885; J1956; J2250; J2405; J3490; J7030 ×4; Q9966; C1758; C1769; C2617

== ENCOUNTER 2018-04-04 03:25 | Day surgery (SDC) | payer MEDICARE, BC ==
[~2018-04-04] VITALS: Ht 175.3 cm; Wt 111.1 kg
[2018-04-04] VITALS (10 sets, daily range): BP systolic 128–145; BP diastolic 73–98
[~2018-04-04 03:25] MED LIST changes: +ACET-685 PO; +ATOR10TA PO
[2018-04-04] MEDS ORDERED: NS 1000ML 1,000 ML ONE (05:55)
[2018-04-04] MEDS ORDERED: LEVAQUIN 100 ML IV ONE (05:55)
[2018-04-04] MEDS ORDERED: LASIX ONE (05:55)
[2018-04-04] MEDS ORDERED: LACTATED RINGERS 1,000 ML IV SCH ×2 (07:00→09:00)
[2018-04-04] MEDS: NS 1000ML 1,000 ML IV SCH (07:16)
[2018-04-04] MEDS ORDERED: DILAUDID IV PRN (07:30)
[2018-04-04] MEDS ORDERED: VENTOLIN IH PRN (07:30)
[2018-04-04] MEDS ORDERED: BENADRYL IV PRN (07:30)
[2018-04-04] MEDS ORDERED: PHENERGAN IV PRN (07:30)
[2018-04-04] MEDS ORDERED: ZOFRAN IV PRN (07:30)
[2018-04-04] MEDS ORDERED: LASIX IV SCH (09:00)
[2018-04-04] MEDS ORDERED: NORCO 7.5MG PO PRN (09:00)
[2018-04-04] MEDS: LASIX IV ONE (09:01)
--- NOTE | 2018-04-04 09:17 | DIREP ---
PROCEDURE:XRAY FLUOROSCOPY COMPARISON:[facility], , XRAY UROGRAPHY RETROGRADE, 03/27/2018, 06:11 AM. INDICATIONS:CYSTO,RETROGRADE WITH STENT REMOVAL TECHNIQUE:4 fluoroscopic images are submitted from the OR. Total fluoroscopy time is 10.7 seconds. FINDINGS:Initial image demonstrates a right ureteral stent in place. Final image demonstrates the stent has been removed through a ureteroscope. CONCLUSION:Right ureteral stent has been removed through a ureteroscope. Dictated by: Micheal Ramirez M.D. on 04/04/2018 at 09:15 AM
--- NOTE | 2018-04-04 12:01 | OPH ---
DATE OF SURGERY: 04/04/2018 PREOPERATIVE DIAGNOSIS: Calculus, right ureter and calculus, left kidney. FINAL DIAGNOSIS: Calculus, right ureter and calculus, left kidney. PROCEDURES: Cystoscopy, removal of right ureteral stent, right ureteroscopy with stone extraction and left ESWL. DESCRIPTION OF PROCEDURE: The patient was initially brought to the cystoscopy room and was put in supine position on the cystoscopy table. After the patient was given a satisfactory and adequate LMA general anesthesia, the patient was placed in lithotomy position. The genitalia was then prepped and draped aseptically in the usual manner. First, a 23-Iraqi cystoscope was inserted per urethra up to the bladder. With the use of the right angle lens, the bladder was visualized. There was some congestion noted. No tumor, no calculi seen. In the right orifice, there was a presence of a stent and this was removed and replaced with a Glidewire. After that, the cystoscope was removed and a 7-Iraqi semirigid ureteroscope was inserted per urethra up to the bladder and inserted to the right ureteral orifice, all the way to the middle and upper ureter and there was a stone noted in the right upper mid ureter. A basket stone extraction was then performed. After removal of the stone, the rest of the ureter was inspected and there was no more residual stone noted. So, the ureteroscope was removed including the Glidewire and the cystoscope was reinserted to the bladder and the bladder was emptied with water. After this was done, the procedure was terminated. Instrument was removed. The patient was then transferred to the lithotripsy room in supine position and a left renal ultrasound was initially performed which revealed a stone in the lower pole of the left kidney measuring 1.3 cm and another in the lower mid pole measuring 4.4 mm in diameter. After localization of the stone with the use of an ultrasound and fluoroscopy, a left ESWL was then performed using a Dornier Compact Delta II Lithotripter. A total of 2500 shockwaves were delivered to the stones in different locations in the left kidney under ultrasound guidance. After fragmentation of the stone as noted in the ultrasound, the procedure was terminated. The patient was then awakened, was transferred to the recovery room in stable condition. Yovani P. Grabato, MD DR: CORAL/eri JOB# [id number]
== END 2018-04-04 11:06 | disposition home or self-care (01) ==
LOC: SDC 03:25
PROVIDERS: ATTEND Urology
DX: N20.2 Calculus of kidney with calculus of ureter (principal); N20.0 Calculus of kidney; G47.30 Sleep apnea, unspecified; E11.9 Type 2 diabetes mellitus without complications; E78.00 Pure hypercholesterolemia, unspecified; F41.9 Anxiety disorder, unspecified; K21.9 Gastro-esophageal reflux disease without esophagitis; J45.909 Unspecified asthma, uncomplicated; E66.9 Obesity, unspecified; Z68.35 Body mass index [BMI] 35.0-35.9, adult; Z88.8 Allergy status to other drugs, medicaments and biological substances; Z88.6 Allergy status to analgesic agent; Z79.899 Other long term (current) drug therapy; Z79.2 Long term (current) use of antibiotics; Z98.890 Other specified postprocedural states; Z84.89 Family history of other specified conditions; Z82.5 Family history of asthma and other chronic lower respiratory diseases
CPT/HCPCS: 50590; 52352; 82948; J1956; J7030; 76000; C1769; J1940